=== PATIENT | female | born 1985 | race Caucasian/White ===

== ENCOUNTER 2017-03-18 16:40 | Emergency (ER) | payer BC ==
[~2017-03-18] VITALS: Ht 154.9 cm; Wt 109.5 kg
[~2017-03-18 16:40] MED LIST: GLYB-108 PO; MTR600X PO; OXYC5TAB PO
[2017-03-18 16:41] VITALS: TEMP 37.3; Ht 154.9 cm; Wt 109.5 kg
[2017-03-18] MEDS ORDERED: PREN1TAB29 PO (18:26)
[2017-03-18] MEDS ORDERED: CEPH500C2 PO (18:30)
[2017-03-18 18:50] VITALS: BP 131/75; PULSE 104; O2SAT 95
--- NOTE | 2017-03-19 00:22 | EMERGENCY ROOM VISIT NOTE ---
ED Visit Note First contact with patient: 18:03 CHIEF COMPLAINT: Cyst. HISTORY OF PRESENT ILLNESS: Ms. Dai is an 31-year-old white female who ambulates into the ED complaining of a possible pilonidal abscess. Patient reports she noticed a hard tender area in the proximal gluteal cleft approximately 1.5 weeks ago. Since that time she had noted that the area is slowly getting larger, more painful and tender. She does not know of any skin injury preceding the redness and has not observed any drainage from the red area. She reports she is currently and was seen by her home companion yesterday who encouraged her to follow-up with her family physician. She reports she called her family physician and they told her they do not drain these abscesses and referred her to general surgery; she is scheduled to see general surgery in 5 or 6 days. Currently patient is complaining of a pressure sensation in the superior gluteal cleft that becomes sharp with palpation and sitting on her buttocks. She currently rates her discomfort 8/10. Her pain is nonradiating. She has not identified any other aggravating factors. She reports mild relief of her discomfort when she no longer sits on the area affected. She has not taken any medications for pain prior to arrival at the hospital although she does reports she's been using warm compresses. She denies any associated symptoms including fevers, chills, sweats, other skin eruptions, other skin color changes, previous abscesses, chest pain, shortness of breath, abdominal pain, nausea, vomiting, decreased appetite. REVIEW OF SYSTEMS: As noted above in History of Present Illness; a body systems were reviewed and found to be negative unless noted above otherwise. PAST MEDICAL HISTORY: Gestational diabetes, status post section and unspecified knee surgery. CURRENT MEDICATION: vitamins. ALLERGIES TO MEDICATION: Patient denies. SOCIAL HISTORY: Patient is currently employed; she feels safe in her home environment; she denies to tobacco and alcohol use PHYSICAL EXAM: Vital Signs: Date Time Temp Pulse Resp B/P (MAP) Pulse Ox O2 Delivery O2 Flow Rate FiO2 03/18/17 18:50 104 131/75 95 03/18/17 16:41 37.3 113 17 128/84 99 Room Air General: 31 year-old white female in mild distress due to symptoms, nontoxic appearing, afebrile and hemodynamically stable. Neurological: Awake, alert and oriented to person, place and time. Answering questions appropriately and following commands. Skin: Warm, dry and pink. Gluteal Fold: Over the proximal gluteal fold bilaterally with more prominence on the right patient has a indurated area which measures approximately 3 cm. The areas tender to palpation. The indurated area is not fluctuant and there is no pointing or drainage. There is a small zone of erythema around the indurated area but no lymphangitis. Thorax: Lungs sounds are clear to auscultation and equal bilaterally with symmetrical chest wall movement. No wheezing, rales or rhonchi. No increased respiratory effort. Abdomen: , soft and nontender. Positive bowel sounds in all quadrants. No guarding or rigidity. ED COURSE: Patient is assessed as noted above. Patient's medication list was reviewed. Patient's case was consulted with pharmacy; they recommended Keflex without Bactrim. Patient was educated about her condition and instructed on her treatment plan; she verbalized understanding and agreement with this plan. CLINICAL IMPRESSION: Early pilonidal abscess. DISPOSITION: Patient discharged to home in stable condition and subjectively reported she was feeling better. PLAN: Patient was prescribed Keflex 500 mg 4 times a day for 10 days per Patient was encouraged to continue warm compresses and use 650 mg of acetaminophen every 6 hours as needed for pain. Patient was encouraged return ED in 36-48 hours for recheck or sooner for worsening signs of infection. Patient was also encouraged to keep her upcoming appointment with general surgery.
== END 2017-03-18 18:51 | disposition home or self-care (01) ==
LOC: C.EDB 16:40 → C.EDD 18:51
DX: O99.719 Diseases of the skin and subcutaneous tissue complicating pregnancy, unspecified trimester (principal); L05.01 Pilonidal cyst with abscess; Z86.32 Personal history of gestational diabetes; Z98.891 History of uterine scar from previous surgery; Z98.890 Other specified postprocedural states

== ENCOUNTER 2017-04-26 07:29 | Inpatient (IN) | payer BC ==
--- NOTE | 2017-04-19 15:19 | PAT Medication Instructions ---
Service Date Apr 19, 2017. Current Home Medication List Vit W/ Ferrous Fumara (), 2 TABS PO QAM Medication Instructions For Your Scheduled Surgery - Hold the following medications the morning of surgery: Vit W/ Ferrous Fumara (), 2 TABS PO QAM If you have any questions please call us at [phone] or [phone] or [phone]
[2017-04-19 15:58] LABS: BASO % 0.1 %; BASO ABS # 0.02 K/uL (0-0.2); EOS % 0.7 %; EOS ABS # 0.09 K/uL (0-0.5); HEMATOCRIT 31.8 % (37-47); HEMOGLOBIN 10.7 g/dL (12.0-16.0); IG# 0.06 K/uL (0.00-0.02); LYMPH % 12.3 %; LYMPH ABS # 1.68 K/uL (1.2-3.4); MEAN CORPUSCULAR HEMOGLOBIN 28.6 pg (25-34); MEAN CORPUSCULAR HGB CONC 33.6 g/dl (32-36); MEAN PLATELET VOLUME 9.1 fL (7.4-10.4); MONO % 4.4 %; NEUT % 82.1 %; NEUT ABS # 11.22 K/uL (1.4-6.5); PLATELET COUNT 372 K/uL (130-400); RED CELL DISTRIBUTION WIDTH CV 13.2 % (11.5-14.5); RED CELL DISTRIBUTION WIDTH SD 40.8 fL (36.4-46.3); WHITE BLOOD COUNT 13.67 K/uL (4.8-10.8)
[2017-04-26] VITALS (11 sets, daily range): BP systolic 108–109; BP diastolic 66–72; PULSE 72–88; TEMP 36.8; O2SAT 95–100; Ht 154.9 cm; Wt 109.1 kg
[~2017-04-26] VITALS: Ht 154.9 cm; Wt 109.1 kg
[~2017-04-26 07:29] MED LIST changes: +CEFAZOLIN IV 3,000 MG in SYRINGE 0 ML IV SCH; -GLYB-108 PO; -MTR600X PO; -OXYC5TAB PO; +PREN1TAB29 PO
--- NOTE | 2017-04-26 08:50 | History & Physical Bridge Note ---
H&P Re-Evaluation Bridge Note: I have examined the patient, reviewed the History & Physical and in the interval since the performance of the History & Physical I have noted the following changes of clinical significance: No changes noted
[2017-04-26] MEDS ORDERED: LACTATED RINGER'S 1000ML 1,000 ML IV SCH ×3 (08:52→11:14)
[2017-04-26] MEDS ORDERED: CITRIC ACID/SODIUM CITRATE 15 ML UDC PO ONE (09:00)
[2017-04-26] MEDS ORDERED: MoRPHine SULFATE PF 1 MG/ML 10 ML AMP/VIAL ONE (09:02)
[2017-04-26] MEDS ORDERED: FENTANYL CITRATE INJ 50 MCG/1 ML 2 ML VIAL ONE (09:03)
[2017-04-26] MEDS ORDERED: OXYTOCIN INJ 10 UNITS/ML VIAL ONE ×3 (09:03→10:49)
[2017-04-26] MEDS ORDERED: PHENYLEPHRINE HCL INJ 10 MG/ML VIAL ONE (09:04)
[2017-04-26 10:00] LABS: BASO % 0.1 %; BASO ABS # 0.01 K/uL (0-0.2); EOS % 0.6 %; EOS ABS # 0.06 K/uL (0-0.5); HEMATOCRIT 33.5 % (37-47); HEMOGLOBIN 11.2 g/dL (12.0-16.0); IG# 0.07 K/uL (0.00-0.02); LYMPH % 8.7 %; MEAN CELL VOLUME 85.2 fL (80-100); MEAN CORPUSCULAR HEMOGLOBIN 28.5 pg (25-34); MEAN CORPUSCULAR HGB CONC 33.4 g/dl (32-36); MEAN PLATELET VOLUME 9.2 fL (7.4-10.4); MONO % 5.8 %; NEUT % 84.1 %; PLATELET COUNT 400 K/uL (130-400); RED CELL DISTRIBUTION WIDTH CV 13.4 % (11.5-14.5); RED CELL DISTRIBUTION WIDTH SD 41.7 fL (36.4-46.3); WHITE BLOOD COUNT 10.34 K/uL (4.8-10.8)
[2017-04-26] MEDS ORDERED: ONDANSETRON INJ 2 MG/ML 2 ML VIAL ONE (10:48)
[2017-04-26] MEDS ORDERED: SUPERCREAM 0.870 % 15GM JAR EXT PRN (11:15)
[2017-04-26] MEDS ORDERED: MEASLES, MUMPS & RUBELLA VIRUS VIAL SQ. ONE (11:15)
[2017-04-26] MEDS ORDERED: MAGNESIUM HYDROXIDE SUSP 30 ML UDC PO PRN (11:15)
[2017-04-26] MEDS ORDERED: SENNA 8.6 MG TAB PO PRN (11:15)
[2017-04-26] MEDS ORDERED: HYDROCORTISONE ACETATE 25 MG SUPP PR PRN (11:15)
[2017-04-26] MEDS ORDERED: LANOLIN OINT EXT PRN (11:15)
[2017-04-26] MEDS ORDERED: DIPHTHERIA/TETANUS/PERTUSSIS 0.5 ML SYR/VIAL IM. ONE (11:15)
[2017-04-26] MEDS ORDERED: BENZOCAINE 20% AER SPR 82.5 GM CAN EXT PRN (11:15)
--- NOTE | 2017-04-26 11:18 | [facility] Post Operative Brief Note ---
Immediate Operative Summary Operative Date Apr 26, 2017. Pre-Operative Diagnosis Term with previous Caesarean section. Post-Operative Diagnosis Same Procedure(s) Performed Repeat Section with delivery of a live male child at [address] Bueno Bag Presser Surgeon(s) Dr. Krishnan Estimated Blood Loss 900cc Findings Consistent with Post-Op Diagnosis Fluids (cc crystalloids) 1500 Specimens Cord Blood Placenta-exam Drains Chandelr to gravity Anesthesia Type Spinal Complication(s) none Disposition Accompanied Pt To Recover: no Disposition: L&D
[2017-04-26] MEDS ORDERED: MoRPHine SULFATE PF 1 MG/ML 10 ML AMP/VIAL IT PRN (11:30)
[2017-04-26] MEDS ORDERED: EpHEDrine SULFATE INJ 50 MG/ML AMP IV PRN (11:30)
[2017-04-26] MEDS ORDERED: NALBUPHINE HCL INJ 10 MG/ML AMP IV PRN (11:30)
[2017-04-26] MEDS ORDERED: ONDANSETRON INJ 2 MG/ML 2 ML VIAL IV PRN (11:30)
[2017-04-26] MEDS ORDERED: NALOXONE HCL INJ 1 MG in SODIUM CHLORIDE 0.9% 1000ML 1,000 ML IV PRN (11:30)
[2017-04-26] MEDS ORDERED: LACTATED RINGER'S 1000ML 500 ML IV PRN (11:30)
[2017-04-26] MEDS ORDERED: DiphenhydrAMINE HCL 50 MG/ML VIAL IV PRN (11:30)
[2017-04-26] MEDS ORDERED: SODIUM CHLORIDE 0.9% 1000ML 1,000 ML IV PRN (11:30)
[2017-04-26] MEDS ORDERED: NALOXONE HCL INJ 0.08 MG in SYRINGE 1.8 ML IV PRN (11:30)
[2017-04-26] MEDS ORDERED: MoRPHine SULFATE 2 MG/ML CARP IV PRN (11:30)
[2017-04-26] MEDS ORDERED: NALOXONE HCL 0.4 MG/1 ML VIAL/CARP IV PRN (11:30)
[2017-04-26] MEDS ORDERED: NO NARCOTICS OR SEDATIVES SCH (11:30)
--- NOTE | 2017-04-26 11:30 | Anesthesiology Progress Note ---
Anesthesia Post Op Note Date & Time Apr 26, 2017 at 11:30 Notes Mental Status: alert / awake / arousable, participated in evaluation Pt Amnestic to Procedure: Yes Nausea / Vomiting: adequately controlled Pain: adequately controlled Airway Patency, RR, SpO2: stable & adequate BP & HR: stable & adequate Hydration State: stable & adequate Neuraxial Anesthesia: was administered, sensory block is resolving Anesthetic Complications: no major complications apparent
[2017-04-26] MEDS ORDERED: OXYTOCIN INJ 10 UNITS/ML VIAL IM ONE (11:33)
--- NOTE | 2017-04-26 12:49 | OPERATIVE REPORT ---
DATE OF OPERATION: 04/26/2017 PREOPERATIVE DIAGNOSES: 1. Term intrauterine at 39 weeks and 2 days gestation. 2. History of previous section, requesting repeat section. OPERATIVE PROCEDURE: Repeat low transverse section. SURGEON: Dr. Shaka Bueno. NANOELECTRONICS ENGINEER: Dr. Kaiser Krishnan. ANESTHESIA: Spinal. ESTIMATED BLOOD LOSS: 900 mL IV FLUIDS: 1500 mL crystalloid. URINE OUTPUT: 150 mL clear yellow urine. SPECIMENS: Cord blood and placenta to pathology. DRAINS: Chandler to gravity. COMPLICATIONS: None. DISPOSITION: To labor and delivery. OPERATIVE FINDINGS: The patient delivered a viable male infant in the vertex position via repeat low transverse section at 10:41 a.m. on 04/26/2017 with Apgars of 9 at 1 minute and 9 at 5 minutes, weighing 8 pounds 8 ounces. Please see dry cleaner helper's notes for further baby assessment. Cord blood was obtained and an intact placenta with 3-vessel cord was delivered at 10:42 and sent to pathology. Grossly normal uterus and bilateral tubes and ovaries noted. Both patient and baby tolerated the surgery well and were sent to recovery with stable vital signs. OPERATIVE PROCEDURE IN DETAIL: The patient was taken to the operating room where spinal anesthesia was administered. She was immediately placed in a dorsal supine position with a left lateral tilt and was prepped and draped in a manner appropriate for the procedure. Once anesthesia was found to be adequate, a Pfannenstiel skin incision was made over the previous surgical scar and was carried down through to a layer of the rectus fascia. Fascia was nicked in the midline and extended bilaterally with curved Marin scissors. The superior aspect of the fascial incision was grasped with Marco A clamps, elevated, and the rectus muscles were dissected off with the use of the electrocautery and curved Marin scissors. Likewise, the inferior aspect of the fascial incision was grasped with Marco A clamps, elevated, and the rectus muscles were dissected off with the use of the electrocautery and curved Marin scissors. Rectus muscles were in midline. The peritoneum was then entered bluntly. Peritoneal incision was extended cephalocaudally with gentle traction. An Davon retractor was then placed within the abdomen. The vesicouterine peritoneum was identified and a bladder flap was created with the Metzenbaum scissors and digital traction. The bladder flap was re-incorporated beneath the bladder blade. A transverse incision was then made on the uterus and extended bilaterally with digital traction. Clear amniotic fluid was noted. The head was identified and delivered through the incision. Nuchal cord x2 was reduced at delivery. The baby was then delivered and bulb suctioned at delivery. Cord was clamped x2 and cut. The baby was then immediately handed to an awaiting dry cleaner helper for further evaluation and management. Please see their notes for further baby assessment. Cord blood was then obtained and an intact placenta with 3-vessel cord was delivered through the incision and sent to pathology. The uterus was then exteriorized and wrapped in a moist laparotomy sponge. The uterus was then cleared of any trailing membranes and debris with laparotomy sponge. It was noted that the uterus was atonic and therefore, 10 units of oxytocin was given intrauterine with excellent uterine tone. The uterine incision was then grasped with ringed forceps at 4 quadrants. It was then closed with 0 Vicryl suture in a continuous locking fashion. A second layer of 0 Vicryl suture was used in an imbricating fashion to ensure hemostasis. Any residual bleeding was suture ligated with 0 Vicryl suture in a [id number] interrupted fashion. Excellent hemostasis was noted at the incision. The posterior cul-de-sac was then irrigated with warm saline solution. The uterus was then placed back within its normal anatomic position within the abdomen. The anterior cul-de-sac was then irrigated with warm saline solution. Excellent hemostasis was noted at the incision. All instruments were removed from the abdomen as well as the Davon retractor and the peritoneum was then grasped with Elayne clamps at 4 quadrants. It was then closed with 2-0 Vicryl suture in a continuous running fashion. Rectus muscles were reapproximated with 0 Vicryl suture in a [id number] interrupted fashion. Rectus fascia was then closed with 0 Vicryl suture in continuous running fashion. Subcutaneous tissue was reapproximated with 2-0 Vicryl suture in a continuous running fashion. Skin was then closed with cheryl. Excellent hemostasis was noted through all tissue layers. All sponge, instrument and needle counts were found to be correct x2. Both patient and baby tolerated the surgery well and were sent to recovery with stable vital signs. I attest to the content of the Intraoperative Record and any orders documented therein. Any exception s are noted below.
[2017-04-26] MEDS: OXYTOCIN INJ 30 UNITS in LACTATED RINGER'S 1000ML 1,000 ML IV SCH ×2 (14:17→22:43)
[2017-04-26] MEDS: KETOROLAC TROMETHAMINE 30 MG/ML VIAL IV. PRN ×2 (14:20→22:43)
[2017-04-26] MEDS: SIMETHICONE 80 MG CHEW PO SCH ×3 (14:21→20:22)
[2017-04-26] MEDS: DOCUSATE SODIUM 100 MG CAP PO SCH (20:22)
[2017-04-27] VITALS (9 sets, daily range): BP systolic 102–120; BP diastolic 68–75; PULSE 72–89; TEMP 36.7–36.9; O2SAT 94–100
[2017-04-27] MEDS ORDERED: NURSING VERBAL MED ORDER ONE (04:15)
[2017-04-27] MEDS ORDERED: OXYCODONE/ACETAMINOPHEN 5-325 TAB PO PRN ×2 (04:15)
[2017-04-27] MEDS ORDERED: ONDANSETRON INJ 2 MG/ML 2 ML VIAL IV PRN (04:15)
[2017-04-27] MEDS ORDERED: LACTATED RINGER'S 1000ML 1,000 ML IV SCH (04:15)
[2017-04-27] MEDS ORDERED: DC INTRASPINAL MORPHINE SCH (04:15)
[2017-04-27] MEDS ORDERED: KETOROLAC TROMETHAMINE 30 MG/ML VIAL IV. PRN (04:16)
[2017-04-27 07:22] LABS: BASO % 0.1 %; BASO ABS # 0.01 K/uL (0-0.2); EOS % 1.6 %; EOS ABS # 0.18 K/uL (0-0.5); HEMATOCRIT 25.1 % (37-47); HEMOGLOBIN 8.4 g/dL (12.0-16.0); IG# 0.06 K/uL (0.00-0.02); LYMPH % 14.7 %; LYMPH ABS # 1.62 K/uL (1.2-3.4); MEAN CELL VOLUME 85.4 fL (80-100); MEAN CORPUSCULAR HEMOGLOBIN 28.6 pg (25-34); MEAN CORPUSCULAR HGB CONC 33.5 g/dl (32-36); MEAN PLATELET VOLUME 8.4 fL (7.4-10.4); MONO % 5.6 %; MONO ABS # 0.62 K/uL (0.11-0.59); NEUT % 77.5 %; NEUT ABS # 8.54 K/uL (1.4-6.5); PLATELET COUNT 273 K/uL (130-400); RED CELL DISTRIBUTION WIDTH CV 13.7 % (11.5-14.5); RED CELL DISTRIBUTION WIDTH SD 41.9 fL (36.4-46.3); WHITE BLOOD COUNT 11.03 K/uL (4.8-10.8)
[2017-04-27] MEDS ORDERED: FERROUS SULFATE 325 MG TAB PO SCH (08:00)
[2017-04-27] MEDS: IBUPROFEN 600 MG TAB PO PRN ×3 (08:14→19:30)
[2017-04-27] MEDS: SIMETHICONE 80 MG CHEW PO SCH ×4 (08:14→19:30)
[2017-04-27] MEDS: PRENATAL VITAMIN TAB PO SCH (08:15)
[2017-04-27] MEDS: DOCUSATE SODIUM 100 MG CAP PO SCH ×2 (08:15→19:30)
--- NOTE | 2017-04-27 08:28 | OB/GYN Progress Note ---
CONSERVATION ENFORCEMENT OFFICER Progress Note Date of Service: Apr 27, 2017. Patient is seen and examined. She feels well, no complaints. Pain is under control with oral meds. Ambulating without dizziness Voiding without difficulty Tolerating regular diet with out N&V Flatus + BM NEG Bleeding is minimal No fever/ chills/ CP/ SOB/ N&V/ Leg pain Breast feeding without problems Date Time Temp Pulse Resp B/P (MAP) Pulse Ox O2 Delivery O2 Flow Rate FiO2 04/27/17 03:45 36.9 82 18 105/70 (82) Room Air 04/27/17 03:30 18 100 04/27/17 02:30 18 94 04/27/17 01:30 18 94 04/27/17 00:29 18 95 04/27/17 00:05 36.7 87 18 106/69 (81) 95 Room Air 04/27/17 00:05 95 Room Air 04/26/17 23:30 18 97 04/26/17 22:30 18 96 04/26/17 21:30 18 95 04/26/17 20:30 18 100 04/26/17 19:30 18 97 04/26/17 19:30 36.8 72 18 108/72 (84) 97 Room Air 04/26/17 18:10 18 99 04/26/17 17:22 18 98 04/26/17 16:51 18 97 04/26/17 15:20 18 98 04/26/17 15:20 98 Room Air 04/26/17 14:30 18 99 04/26/17 13:30 98 Room Air 04/26/17 13:30 98 Room Air 04/26/17 13:30 18 98 04/26/17 13:30 36.8 88 18 109/66 (80) 98 Room Air PE: General: Alert, orientedx3, NAD CVS: S1S2 RRR Lungs; CTAB Abd: soft, NT, ND, BS+, fundus firm, below Umbilicus Dressing: Clean, dry, intact Perineum intact, Lochia rubra minimal Ext; NT, no edema AP: 31 yo s/p C Section, pod# 1 VSS Afebrile doing well Continue routine postop care Encourage ambulation, PO intake All questions were answered
[2017-04-27] MEDS: FERROUS SULFATE 325 MG TAB PO SCH (19:30)
[2017-04-27] MEDS ORDERED: BISACODYL 5 MG TABEC PO ONE (22:00)
[2017-04-28] MEDS: IBUPROFEN 600 MG TAB PO PRN ×3 (00:38→12:02)
[2017-04-28 06:19] LABS: HEMATOCRIT 25.1 % (37-47); HEMOGLOBIN 8.3 g/dL (12.0-16.0)
[2017-04-28 07:55] VITALS: BP 116/79; PULSE 93; TEMP 37
[2017-04-28] MEDS: DOCUSATE SODIUM 100 MG CAP PO SCH (08:06)
[2017-04-28] MEDS: PRENATAL VITAMIN TAB PO SCH (08:06)
[2017-04-28] MEDS: FERROUS SULFATE 325 MG TAB PO SCH (08:06)
[2017-04-28] MEDS: SIMETHICONE 80 MG CHEW PO SCH ×2 (08:06→12:01)
--- NOTE | 2017-04-28 09:55 | Surgery Progress Note ---
Surgery Progress Note Date of Service Apr 28, 2017. Subjective Post OP Day: 2 + diet (PO food and meds), No complaints, No chest pain, No SOB, No bowel movement, No using CONSTRUCTION CONSULTANT, No nausea, No vomiting Objective Vital Signs: Date Time Temp Pulse Resp B/P (MAP) Pulse Ox O2 Delivery O2 Flow Rate FiO2 04/28/17 07:55 37.0 93 20 116/79 (91) 04/27/17 23:10 36.8 87 18 120/75 (90) 98 Room Air 04/27/17 23:10 98 Room Air 04/27/17 16:10 Room Air 04/27/17 16:08 36.9 89 16 102/68 (79) Room Air General Appearance: WD/WN, no apparent distress Head: normocephalic, atraumatic Neck: supple, no adenopathy, thyroid normal, no JVD, no carotid bruits, trachea midline Respiratory/Chest: chest non-tender, lungs clear, normal breath sounds, no respiratory distress, no accessory muscle use Cardiovascular: regular rate, rhythm, no edema, no gallop, no JVD, no murmur Abdomen: normal bowel sounds, non tender, non distended, soft, no organomegaly , no pulsatile mass Incision(s): clean, dry, intact, no erythema, no drainage Extremities: normal range of motion, non-tender, normal inspection, no pedal edema, no calf tenderness, normal capillary refill, pelvis stable Laboratory Results: Results Past 24 Hours Test 04/28/17 05:59 Range/Units Hemoglobin 8.3 12.0-16.0 g/dL Hematocrit 25.1 37-47 % Assessment & Plan C/sec day #2 pt doing well wishes to go home today
[2017-04-28] MEDS ORDERED: FRRS300 PO (09:58)
[2017-04-28] MEDS ORDERED: MTR600X PO (09:58)
[2017-04-28] MEDS ORDERED: OXYC-57 PO (09:58)
[2017-04-28] MEDS ORDERED: CLC100 PO (09:58)
--- NOTE | 2017-04-28 10:01 | Discharge Instructions ---
Discharge Instructions Date of Service Apr 28, 2017. Admission Reason for Admission: Term , Lga, Previous Section Discharge Discharge Diagnosis / Problem: postop Discharge Goals Goal(s): Routine recovery after surgery Activity Recommendations Activity Limitations: as noted below ACTIVITY RECOMMENDATIONS: * Gradual return to full activity over the next 2-3 weeks. * No lifting - nothing heavier than baby over the next 2-3 weeks. * Do not engage in vigorous exercise, sexual activity or sports until cleared by your physician. * Do not drive or operate any motorized equipment until cleared by your physician. * You may shower/bathe daily. BREAST CARE: If you are not breast feeding: * Wear a supportive bra 24 hours a day for one to two weeks. * Avoid stimulating your breasts and nipples as much as possible during the first few weeks after delivery. * When taking a shower, have the warm water hit your back, not breasts. * When your breasts feel full, apply ice packs. Usually three to four times a day helps ease the discomfort. * Take a mild pain medication (Tylenol/Motrin) when you are uncomfortable. If breast feeding: * Use breast milk to lubricate nipples. Lansinoh cream may be used for sore nipples. You do not need to remove cream prior to breast feeding. If using a different brand of cream, check the label for directions regarding removal of cream prior to nursing. * Wear a supportive bra. * If having problems with breasts or breast feeding, call a retail consultant or your health care provider. OVER THE COUNTER MEDICATION: * For discomfort or pain, you may use Acetaminophen (Tylenol), Ibuprofen (Advil ), or Naproxen (Aleve) following the package directions. * For constipation you may use Colace following the package directions. SPECIAL CARE INSTRUCTIONS: When you are discharged from the hospital, it is important for you to follow the instructions listed below: * During the first week at home, you should be able to care for yourself and your baby. In addition, the usual light household activities are encouraged. * Limit your activities to the way you feel. Do not try to clean the house or move furniture. Be sensible. * If you actively engage in sports and have done so up until the time of your delivery, you may resume these activities as soon as you feel able. This may take up to one month or even longer. Use good judgment. * Continue to take your vitamins for at least six weeks after the of your baby. * Your diet need not be limited unless you were on a special diet before your delivery. Breast-feeding mothers need around 2500 calories per day and at least 64-80 ounces of fluid per day (8 to 10 glasses). * You should eat foods from the four major food groups. Crash diets or fad diets are to be avoided. Eating lean meats, fresh fruits and vegetables, low-fat dairy products, high fiber foods and a regular exercise program, will help you get back to your pre- weight without putting your health at risk. * Constipation is sometimes a problem after delivery. Take a mild laxative as needed. If breast feeding, Milk of Magnesia is acceptable to use. You may use a suppository or Fleets enema if no episiotomy. * A daily shower or tub bath is suggested. Be sure to thoroughly and gently dry the perineum. * A bloody vaginal discharge will usually continue until around four weeks post . A small amount of bleeding may continue for as long as six weeks. Vaginal discharge changes from the bright red bleeding after delivery to pink then brownish and finally yellowish-pink before becoming white and disappearing. * Bleeding may increase with activity. Your first period may come in 4-8 weeks. If you are breast feeding, your period may be delayed even longer. * [place] (sex) can begin whenever both you and your partner feel comfortable and do not have any form of genital infection. It is recommended that you wait at least six weeks for internal and external healing to occur. If you have questions, please talk to your health care practitioner. A condom should be used to prevent infection and . * Foreplay, gentle intercourse and lubrication is very important the first several times to prevent pain. A water-based lubricant such as K-Y jelly or Astroglide may be used. * Tampons and/or Douching should be avoided until after six weeks check-up. * If you have RH negative blood and your baby is RH positive, you will receive RHOGAM by injection prior to discharge. The nurse will give you a card to keep with you that has the date and place that you received RHOGAM after delivery. * During your care, you had a Rubella screen done to check for the presence of rubella antibodies in your blood. If your test was negative, you will receive a Rubella vaccine prior to discharge. This vaccine may cause a fever, soreness at the injection site and flu-like symptoms. If these symptoms persist, notify your health care practitioner. is not advised for three months after a Rubella vaccine. * Verbalizes understanding of car seat law as reviewed with patient nursing. * Car Seat hand-out given and reviewed with patient by nursing. * Shaken baby information reviewed with patient by nursing. Call you doctor if: * Heavy bleeding (saturating several pads an hour) or passing clots the size of your fist. * A fever >101 degrees F (38.3 degrees C) on two occasions four hours apart and /or chills. * Unusual pain in the pelvic or vaginal areas. Pain should improve each day . * Call the doctor for any increased redness, drainage or swelling around the incision and any pain unrelieved by prescribed pain medication. * Any signs or symptoms of phlebitis (possible blood clots forming in the veins ): leg pain, warm, red or swollen area on leg. * "Baby Blues" lasting longer than two weeks. If you have any questions or concerns, call your health care practitioner at . FOLLOW-UP VISIT: * Incision check (staple removal) in 1 week. Please call doctor's office at to set up appointment. * Please call the office at to schedule a 6 week examination. It is important you keep this appointment. * It is important for you to make arrangements for either yearly or twice yearly check-ups thereafter. . Current Hospital Diet Patient's current hospital diet: Regular OB Diet Discharge Diet Recommended Diet: Regular Diet Procedures Procedures Performed: Repeat Section with delivery of a live male child at 1041 Pending Studies Studies pending at discharge: no Medical Emergencies . Who to Call and When: Medical Emergencies: If at any time you feel your situation is an emergency, please call [phone] immediately. . Non-Emergent Contact Non-Emergency issues call your: Specialist . . "Provider Documentation" section prepared by Jerome Del Valle. . VTE Core Measure Inpt VTE Proph given/why not?: Treatment not indicated
[2017-04-28] MEDS ORDERED: BISACODYL 10 MG SUPP PR PRN (11:15)
[2017-04-28 12:30] VITALS: BP_DIAS 79; PULSE 93; TEMP 37
== END 2017-04-28 12:48 | disposition home or self-care (01) | DRG 766 ==
LOC: C.LD 07:29 → EDSTATUS 09:15 → C.OBG 13:43
PROVIDERS: ADMIT Obstetrics & Gynecology; ATTEND Obstetrics & Gynecology
PROC: 10D00Z1 Extraction of Products of Conception, Low, Open Approach (ICD-10-PCS; principal; 2017-04-26 09:15)
DX: O34.219 Maternal care for unspecified type scar from previous cesarean delivery (principal); O69.81X1 Labor and delivery complicated by cord around neck, without compression, fetus 1; Z3A.39 39 weeks gestation of pregnancy; Z37.0 Single live birth